=== PATIENT | female | born 1945 | race Caucasian/White ===

== ENCOUNTER 2016-10-31 08:41 | Outpatient (CLI) | payer MEDICARE, OTHER ==
--- NOTE | 2016-10-31 14:32 | Diagnostic Imaging Report ---
[facility] [address] [facility] [place], [place]. [address] ~ ~ ~ ~ Report Submission Date: Oct 31, 2016 10:15:00 AM DOCTOR OF NATUROPATHIC MEDICINE Patient ~ Study Name: INDER ELY ~ Date: Oct 31, 2016 9:01:40 AM DOCTOR OF NATUROPATHIC MEDICINE ~ Modality Type: MR Gender: F ~ Description: MRI UP EXT NON JNT W/O CONT : 43 ~ Institution: [facility] Physician: SATHISH CARRANZA ~ ~ ~ ~ HISTORY: 71-year-old female with painful mass on the left upper arm anteriorly since early July 2016. COMPARISON: None available. TECHNIQUE: Multiplanar multisequence noncontrast MR images of the left proximal humerus were performed. FINDINGS: There are skin markers bracketing the area of the patient's palpable abnormality of the left anterior upper arm. ~No mass, fluid collections, or signal abnormalities are identified within the subcutaneous tissues were musculature deep to the skin markers. ~There is a full-thickness tear of the anterior aspect of the supraspinatus tendon, with associated high-riding humeral head there are partial-thickness tears of the infraspinatus tendon. ~No definite labral tear. ~The long head of the biceps tendon is intact, but is mildly subluxed medially. ~There is acromioclavicular hypertrophy and synovitis. ~There is a small glenohumeral effusion communicating with fluid in the subacromial-subdeltoid region. IMPRESSION: 1. ~No evidence of solid mass, fluid collections, or other abnormalities deep to the skin markers denoting the area of the patient's painful palpable abnormality of the anterior aspect of the left upper arm. 2. ~Full-thickness tear of the anterior aspect of the supraspinatus and a partial thickness tear of the infraspinatus tendon. ~There is associated loss of subacromial space. ~ 3. ~Acromioclavicular hypertrophy and synovitis. ~ Electronically signed on Oct 31, 2016 10:15:00 AM DOCTOR OF NATUROPATHIC MEDICINE by: Ken NEWTON
== END 2016-10-31 08:42 ==
LOC: RAD 08:41
PROVIDERS: ATTEND Family Medicine
DX: R22.32 Localized swelling, mass and lump, left upper limb (principal)
CPT/HCPCS: 73218

== ENCOUNTER 2017-08-19 10:24 | Outpatient (CLI) | payer MEDICARE, OTHER ==
--- NOTE | 2017-08-19 11:39 | Diagnostic Imaging Report ---
DILLON BOWER - PAULETTE [facility] [place] [facility] [address] [facility] [address] Report Submission Date: Aug 19, 2017 11:28:43 AM CDT Patient Study Name: INDER ELY Date: Aug 19, 2017 10:56:54 AM CDT Modality Type: US Gender: F Description: UNILAT LTD STDY EXT VEINS : 43 Institution: [facility] [place] [facility] Physician: DILLON BOWER - PAULETTE Examination: Ultrasound vein History: Leg discomfort Findings: Sonographic evaluation of the right lower extremity venous system from the groin to the popliteal fossa inclusive. Normal compressibility. No luminal filling defect. Normal waveforms and response to augmentation. No popliteal region fluid collection. Peripheral compressible varicosities. Impression: No evidence for deep venous thrombosis. Electronically signed on Aug 19, 2017 11:28:43 AM CDT by: Alberto NEWTON
== END 2017-08-19 10:30 ==
LOC: RAD 10:24
PROVIDERS: ATTEND Nurse Practitioner Family
DX: M79.604 Pain in right leg (principal); Z86.718 Personal history of other venous thrombosis and embolism; Z13.820 Encounter for screening for osteoporosis
CPT/HCPCS: 77080; 93971

== ENCOUNTER 2018-02-01 08:56 | Outpatient (CLI) | payer MEDICARE, OTHER ==
--- NOTE | 2018-02-01 19:53 | Diagnostic Imaging Report ---
DILLON BOWER~ [facility] [address] [facility] [address] [place], [place]. [address] ~ ~ ~ ~ Report Submission Date: Feb 01, 2018 1:32:42 PM CDT Patient ~ Study Name: INDER ELY ~ Date: Feb 01, 2018 11:23:24 AM CDT ~ Modality Type: CT\SR Gender: F ~ Description: CT ABD PELVIS W/ CON : 43 ~ Institution: [facility] Physician: DILLON BOWER ~ ~ ~ Examination: CT Abdomen/pelvis History: CT A/P WITH CONTRAST, GENERALIZED ABDOMINAL PAIN (Hx) Comparison exams: None available Technique: CT Abdomen/pelvis with IV protocol.~ Findings:~ Liver demonstrates mild diffuse low attenuation. No central lesion. Spleen, adrenals, pancreas, and kidneys are without gross irregularity.~ No abnormal enhancement. Surgical clips gallbladder fossa. No suspicious renal calcifications. Ureters do not appear to be dilated in their course through the abdomen and pelvis. Distended bladder. Abdominal aorta demonstrates peripheral atherosclerotic disease. No aneurysm. Cardiac silhouette is not enlarged. No pericardial effusion. Contrast filled bowel. Prominent loops of small bowel with air-fluid levels left upper abdomen. Stool within the large bowel limiting sensitivity. No mesenteric inflammatory changes or free fluid. Appendix not visualized. Osseous structures demonstrate mild degenerative spurring. T10 kyphoplasty. Lung bases without infiltrate. No effusion. ~ Impression: No abdominal mass or acute upper abdominal organ inflammatory process. Prominent small bowel associated with air-fluid levels - enteritis. No obstruction. Large bowel stool - constipation. No suspicious renal calcifications. Fatty liver. No lung base consolidation or effusion. ~ Electronically signed on Feb 01, 2018 1:32:42 PM CDT by: Alberto NEWTON
== END 2018-02-01 08:57 ==
LOC: RAD 08:56
PROVIDERS: ATTEND Family Medicine
DX: R10.9 Unspecified abdominal pain (principal)
CPT/HCPCS: 74177; Q9966; Q9967

== ENCOUNTER 2018-09-27 08:43 | Outpatient (CLI) | payer MEDICARE, OTHER ==
--- NOTE | 2018-09-28 03:40 | Diagnostic Imaging Report ---
KAY ARELLANO [facility] [address] [facility] [address] [place], [place]. [address] Report Submission Date: Sep 27, 2018 10:09:19 AM BARREL LOADER Patient Study Name: INDER ELY Date: Sep 27, 2018 9:05:42 AM BARREL LOADER Modality Type: CT\SR Gender: F Description: CT ABD PELVIS W/ CON : 43 Institution: [facility] Physician: KAY ARELLANO CT Abdomen/pelvis with contrast History: PT STATES DISCOMFORT AND PAIN IN ABDOMEN. PT STATES CONSTIPATION AND INCREASED PAIN AFTER A VAGINAL LAST WEEK. PT STATES GALLBLADDER AND OVARY REMOVED. (Hx) / ITS.REASON ABD PAIN/ ELEVATED AMYLASE/LIPASE Comparison: February 01, 2018 Clear lung bases. No free intraperitoneal air. Thoracolumbar spondylosis. Vertebroplasty T10. Post cholecystectomy. The liver, spleen adrenal glands are within normal limits, pancreatic duct is mildly prominent and pancreatic divisum is questione No hydronephrosis. Tiny stable bilateral renal cysts, urinary bladder is decompressed. Uterus is heterogeneous in appearance, surgical clips are seen in the right adnexal region, mild fat stranding is present in the pelvis. Heterogeneous prominence of the IVC again seen. Prominent paraaortic lymph nodes are seen Colon is fluid-filled and demonstrate air-fluid levels, no obvious bowel obstruction. The appendix is not clearly identified in its entirety Atherosclerotic calcification of the aorta and its branches Impression: 1. Fluid-filled colon and scattered air-fluid levels in the colon and small bowel are noted, questionable enterocolitis. 2. Post cholecystectomy with mild biliary and pancreatic ductal prominence. No intraabdominal fluid collection is identified. Electronically signed on Sep 27, 2018 10:09:19 AM BARREL LOADER by: Clare NEWTON
== END 2018-09-27 08:44 ==
LOC: RAD 08:43
PROVIDERS: ATTEND Nurse Practitioner Family
DX: R10.12 Left upper quadrant pain (principal); R74.8 Abnormal levels of other serum enzymes
CPT/HCPCS: 74177; Q9967